=== PATIENT | female | born 1990 | race American Indian/Alaskan Native ===

== ENCOUNTER 2020-02-14 11:14 | Emergency (ER) | payer SELFPAY ==
[2020-02-14 11:48] VITALS: BP 113/81
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
== END 2020-02-14 14:38 | disposition home or self-care (01) ==
LOC: ED 11:14
DX: S16.1XXA Strain of muscle, fascia and tendon at neck level, initial encounter (principal); J45.909 Unspecified asthma, uncomplicated; M79.18 Myalgia, other site; X58.XXXA Exposure to other specified factors, initial encounter; Y93.89 Activity, other specified; Y92.89 Other specified places as the place of occurrence of the external cause; Y99.8 Other external cause status
CPT/HCPCS: 99281